=== PATIENT | female | born 1945 | race Caucasian/White ===

== ENCOUNTER 2017-05-07 23:51 | Emergency (ER) | payer OTHER, BC ==
[2017-05-08 00:16] VITALS: BP 134/69; PULSE 104; TEMP 97.9; BMI 29.9
--- NOTE | 2017-05-08 00:53 | PDOC ---
History of Present Illness - General Chief Complaint: Rash Stated Complaint: RASH Time Seen by Provider: 05/08/17 00:20 - History of Present Illness Initial Comments: This 71-year-old woman with a history hypertension/hyperlipidemia/type II DM presents with rash. Patient has had several week history of pruritic lesions of her upper back. Patient has used [id number] topical treatment without significant relief in her symptoms. She has not taken anything new by mouth other than medications that have already been prescribed. No new supplements; no new foods Over the last 2 days she is noted very pruritic papular rash of the upper back, upper anterior chest extending somewhat to her anterior abdomen. She has not had any head or neck rash and denies lip/tongue swelling and has had no difficulty swallowing or breathing. She also has a very small, pruritic rash of the space between the fourth and fifth fingers of her left hand the last several days. This rash is different and is scaly on an erythematous base. She has no history of poison ashley/oak but has been gardening recently No history of having seen a manager hvac; patient has general medical doctor but has not yet seen her doctor about her skin conditions. Past History - Past Medical History Allergies/Adverse Reactions: Allergies Allergy/AdvReac Type Severity Reaction Status Date / Time No Known Allergies Allergy Unverified 05/08/17 00:08 Home Medications: Ambulatory Orders Clobetasol Prop 0.05% Top Cr [Temovate (Nf)] 1 gm TP BID #1 tube 05/08/17 Prednisone [Deltasone -] 40 mg PO DAILY #10 tablet 05/08/17 Diabetes: Yes Thyroid Disease: Yes - Psycho/Social/Smoking Cessation Hx Anxiety: No Suicidal Ideation: No Smoking History: Never smoked Review of Systems - Review of Systems Able to Perform ROS?: Yes Comments:: 12 point review of systems is negative except for what is noted in the history of present illness *Physical Exam - Vital Signs Last Vital Signs Temp Pulse Resp BP Pulse Ox 97.9 F 104 H 18 134/69 95 05/07/17 23:55 05/07/17 23:55 05/07/17 23:55 05/07/17 23:55 05/07/17 23:55 - Physical Exam Comments: GENERAL: Adult female in no acute distress ENT: Ears normal, nares patent, oropharynx clear without exudates. Dry mucous membranes. NECK: Normal range of motion, supple without lymphadenopathy, JVD, or masses. LUNGS: Breath sounds equal, clear to auscultation bilaterally. No wheezes, and no crackles. HEART:Regular rate and rhythm, normal S1 and S2 without murmur, rub or gallop. ABDOMEN:.normal bowel sounds No guarding,tenderness or rebound.No masses No distention. EXTREMITIES: Normal range of motion, no edema. No clubbing or cyanosis. No erythema, or tenderness. NEUROLOGICAL: Cranial nerves II through XII grossly intact. Normal speech. No focal neurological deficits. SKIN: Scattered 1 cm circular shallow ulcers bilateral upper back area Fine papular, nonerythematous rash of the upper back/upper anterior chest extending downward to the upper abdomen 1 cm x 1 cm scaly lesion with erythematous base dorsal surface of the fourth/fifth interdigital space left hand Medical Decision Making - Medical Decision Making This 71-year-old woman presents with 3 different types of rashes as noted above. The most symptomatic is the very pruritic papular rash of the upper chest/upper back area. Although this appears to be urticarial, there is no lip or tongue edema and no evidence of stridor or wheezing. Because the patient has such pruritus, she will be started on prednisone 40 mg a day (20 mg twice a day) for 5 days. The patient is cautioned that steroids can cause significant hyperglycemia in diabetics. The patient states that she does not test her sugars and she has had no history of significant hyperglycemia. Still, the patient should follow-up with her doctor within the next [address] Suzi Harrnigton referral information for dermatology will be given to the patient. She also knows to return manager hvac that sees her extended family. She can see this manager hvac also. *DC/Admit/Observation/Transfer Diagnosis at time of Disposition: Urticaria - Discharge Dispostion Disposition: HOME Condition at time of disposition: Stable - Prescriptions Prescriptions: Prednisone [Deltasone -] 40 mg PO DAILY #10 tablet Clobetasol Prop 0.05% Top Cr [Temovate (Nf)] 1 gm TP BID #1 tube - Referrals Referrals: [place] Valdes [Primary Care Provider] - 1 week Milly Harrington [Staff Physician] - Call tomorrow - Patient Instructions Printed Discharge Instructions: Dom Additional Instructions: Prednisone 40 mg daily for the next 5 day(take with food) Benadryl 25 mg as needed for breakthrough itching ( medication will make you sleepy) Clobetasol cream twice a day to left hand rash Return to ER immediately if you have difficulty swallowing or develop wheezing Follow-up with Dr. Valdes within [address] Harrington's office in the morning to arrange for follow-up
[2017-05-08] MEDS ORDERED: predniSONE 20 MG TABLET (UD) PO ONE (01:28)
[2017-05-08] MEDS ORDERED: diphenhydrAMINE HCL 25 MG CAPSULE (FP) PO ONE ×2 (01:29→01:31)
[2017-05-08] MEDS ORDERED: predniSONE 20 MG TABLET (UD) ONE (01:31)
== END 2017-05-08 01:40 | disposition home or self-care (01) ==
LOC: FER 23:51
DX: L50.9 Urticaria, unspecified (principal); E11.9 Type 2 diabetes mellitus without complications; E07.9 Disorder of thyroid, unspecified
CPT/HCPCS: 99281-25